=== PATIENT | female | born 1990 | race African-American/Black ===

== ENCOUNTER 2016-10-01 10:00 | Emergency (ER) | payer BC ==
[~2016-10-01] VITALS: Ht 154.9 cm; Wt 75.5 kg
[~2016-10-01 10:00] MED LIST: ADVAIR 250-501 EACH IH; ALBUTEROL17 G1 IH; ALEVE220 M2 PO; AMOXICILLIN; BIRTH CONTROL PO; FIORICET 50-301 EACH PO; LEVAQUIN750 MG PO; MEDROXYPRO150 MG/1 M IM; MOTRIN800 MG PO; NASACORT AQ16.5 GM NS; PREDNISONE20 MG PO; PRILOSEC40 MG PO; SINGULAIR10 MG PO; VENTOLIN HFA18 GM IH; VENTOLIN17 GM; ZANTAC150 MG PO; ZOFRAN4 MG PO
[2016-10-01 12:45] VITALS: BP 110/61
== END 2016-10-01 12:46 | disposition home or self-care (01) ==
LOC: EME 10:00
DX: J06.9 Acute upper respiratory infection, unspecified (principal); Z88.6 Allergy status to analgesic agent
CPT/HCPCS: 71020; 93005; 99281; 99284